=== PATIENT | female | born 1995 | race Caucasian/White ===

== ENCOUNTER 2024-07-28 10:02 | Outpatient (AMB) | payer OTHER, SELFPAY ==
--- NOTE | 2024-07-28 10:08 | A.OFFPC_ITS ---
Vital Signs 07/28/24 10:11 Height 5 ft 3 in Weight 203 lb BMI 36.0 BP 118/90 H Blood Pressure Location Lt brachial Position Sitting Respiration 16 Pulse 82 Pulse Source Pulse Oximeter Temp 98.1 F Pulse Oximetry (%) 99 Oxygen Delivery Method Room Air Intake Visit Reasons: CARPENTERS SUPERVISOR/request PE Intake Note: Pt is here today as a New Patient to [facility] care/ PE Is last menstrual period known: Yes Last menstrual period: 07/27/24 Allergies venlafaxine [From Effexor] Adverse Reaction (Verified 07/28/24 10:29) suicidal Medication List - Last Reconciled 07/28/24 by Jaye Smith MD azelastine (Astepro Allergy) 2 sprays intranasal DAILY bupropion HCl SR 200 mg PO BID buspirone 15 mg PO TID cetirizine 10 mg PO DAILY PRN fluoxetine 40 mg PO DAILY fluoxetine 10 mg PO DAILY glycopyrrolate 1 mg PO ONCE PRN magnesium aspart,citrate,oxide mg PO multivitamin 1 tab PO DAILY norethindrone (contraceptive) 0.35 mg PO DAILY omeprazole magnesium (Prilosec OTC) 20 mg PO DAILY pseudoephedrine HCl 30 mg PO Q4-6H PRN triamcinolone acetonide (Nasacort) 1 spray intranasal DAILY Tobacco use date assessed: 07/28/24 Dental Screening Dental Screen Date: 07/28/24 Did you have a dental visit in the last 12 months?: Yes Did you have a dental problem in the last 6 months where you did not have access to dental care?: Yes Was dental information given to patient?: Patient has dentist HPI CARPENTERS SUPERVISOR/request PE HPI Details 29-year-old lady for a physical exam and to establish with a new PCP. She has history of depression with anxiety, currently being followed by Margaret Liao, a nurse psychiatrist at [facility] who prescribes her fluoxetine, buspirone and bupropion. She is also seeing a therapist Michi Torres once a week by telehealth. She has environmental and seasonal allergies, will be starting immunotherapy at [facility] with Dr. Holliday. Has hyperhidrosis currently taking glycopyrrolate as needed with good results. She is currently on control pills, needs a referral to a new OBGYN provider. [facility] Medical History Obesity (BMI 35.0-39.9 without comorbidity) Environmental and seasonal allergies Depression with anxiety De Quervain's tenosynovitis, left Uses control Surgical History (Updated 07/28/24 @ 10:40 by Jaye Smith MD) Hx of LASIK H/O wisdom tooth extraction History of tonsillectomy and adenoidectomy H/O left wrist surgery Family History (Updated 07/28/24 @ 10:55 by Jaye Smith MD) Father Substance use disorder Mental health disorder Lung cancer Alcoholism Maternal Grandmother Lung cancer Paternal Grandmother Breast cancer Paternal Aunt Breast cancer, Onset Age: 40 Social History (Updated 07/28/24 @ 10:56 by Jaye Smith MD) Housing: House Patient Tobacco Use Status: Never used Tobacco e-Cigarette/Vaping Use: Currently Using Substance Use Type: Marijuana service: No Current occupational status: employed Current occupation: [employer] Cognitive needs: No Hearing needs: No Vision needs: No Female Reproductive History Menstrual Date of last menstrual period: 07/27/24 control method: pills Questionnaire PHQ-9 Over the last 2 weeks, how often have you been bothered by any of the following problems? 1. Little interest or pleasure in doing things: several days 2. Feeling down, depressed, or hopeless: several days 3. Trouble falling or staying asleep, or sleeping too much: several days 4. Feeling tired or having little energy: several days 5. Poor appetite or overeating: not at all 6. Feeling bad about yourself - or that you are a failure or have let yourself or your family down: not at all 7. Trouble concentrating on things, such as reading the newspaper or watching television: several days 8. Moving or speaking so slowly that other people could have noticed. Or the opposite - being so fidgety or restless that you have been moving around a lot more than usual: not at all 9. Thoughts that you would be better off or of hurting yourself in some way: not at all Total score: 5 Depression Screening Interpretation: Positive (Currently followed by nurse psychiatrist and therapist in [place]) Depression Screening Follow-up: Existing condition, In treatment and Community Mental Health Worker F/U Depression Screening Done: Yes 32333 - PHQ-9 Billing: Yes Source: Developed by Drs. Marcos Hendrix, Dwaine Tomlin and colleagues, with an educational bart from [employer]. Thrive Questionnaire Date Thrive assessed: 07/21/24 I am a: Patient What is your living situation today?: I have a steady place to live Within the past 12 months, did the food you bought not last and you didn't have the money to get more?: Never true Within the past 12 months, did you worry whether your food would run out before you got money to buy more?: Never true Do you have trouble paying for medicines?: No Do you have trouble getting transportation to medical appointments?: No Do you have trouble paying your heating and electricity bill?: No Do you have trouble taking care of your child, family member or friend?: No Do you have trouble with day-to-day activities such as bathing, preparing meals, shopping, managing finances, etc.?: No Are you currently unemployed and looking for a job?: No Are you interested in more education?: I choose not to answer this question Please select the resources that you would like help with: None Currently or been in a relationship where the following occur: I choose not to answer THRIVE Score: 0 AUDIT C Alcohol Use Questionnaire (AUDIT-C) 1. How often do you have a drink containing alcohol?: Never 3. How often do you have six or more drinks on one occasion?: Never Total Score: 0 VASYL-7 AMB Questionnaire VASYL-7 Feeling nervous, anxious, or on edge: 1 = Several days Not being able to stop or control worryin = Several days Worrying too much about different things: 1 = Several days Trouble relaxin = Several days Being so restless that it is hard to sit still: 0 = Not at all Becoming easily annoyed or irritable: 1 = Several days Feeling afraid as if something awful might happen: 0 = Not at all Total VASYL-7 score (0-4 normal; 5-9 mild; 10-14 moderate; 15-21 severe): 5 Source: Developed by Drs. Marcos Hendrix, Dwaine Tomlin and colleagues, with an educational bart from [employer]. VASYL-7 Assessment Billing VASYL-7 Assessment Tool: VASYL-7 Assessment 87350 Review of Systems Const Denies body aches, Denies fatigue, Denies fever(s), Denies headache(s) and Denies weakness Eyes Denies change in vision, Denies eye discharge and Denies itchy eyes ENT Denies dysphagia, Denies dizziness, Denies headache(s), Denies lip swelling, Reports nasal congestion, Reports post nasal drip, Denies sinus pain, Denies sore throat and Denies throat swelling Card Denies chest pain, Denies lightheadedness, Denies palpitations and Denies dyspnea Resp Denies chest congestion, Denies cough, Denies dyspnea and Denies wheezing GI Denies abdominal pain, Denies change in bowel habits, Denies dysphagia and Denies heartburn Denies hematuria, Denies urinary frequency, Denies dysuria and Denies urinary urgency Musc Reports no additional complaints Skin/Breast Denies breast pain, Denies breast mass, Denies lesions and Denies rash Neuro Denies dizziness, Denies headache(s) and Denies weakness Psych Reports as per HPI Endo Denies fatigue, Denies polydipsia, Denies polyuria and Denies palpitations Grey/Lymph Denies easy bruising Aller/Immun Reports as per HPI, Denies itchy eyes, Denies lip swelling, Denies throat swelling and Denies wheezing Physical exam (Primary Care) Vital Signs: Last Vital Signs Temp 98.1 F 07/28/24 10:11 Pulse 82 07/28/24 10:11 Resp 16 07/28/24 10:11 BP 118/90 H 07/28/24 10:11 Pulse Ox 99 07/28/24 10:11 Oxygen Delivery Method Room Air 07/28/24 10:11 BMI result Body Mass Index 36.0 Tobacco/Smoking Status: Tobacco use Status Tobacco use date assessed 07/28/24 07/28/24 10:26 Patient Tobacco Use Status Never used Tobacco 07/28/24 10:56 e-Cigarette/Vaping Use Currently Using 07/28/24 10:56 PHQ-9: PHQ-9 Score PHQ-9: Total score 5 07/31/24 02:52 Depression Screening Interpretation: Positive (Currently followed by nurse psychiatrist and therapist in [place]) Depression Screening Follow-up: Existing condition, In treatment and Community Mental Health Worker F/U Thrive Assessment: Date of Thrive Assessment Date Thrive assessed 07/21/24 07/28/24 10:10 Currently or been in a relationship where the following occur: I choose not to answer Const General: no acute distress and alert Orientation/consciousness: patient oriented x3 [facility] Head: Yes normocephalic Ears: external ears normal, TM's normal bilaterally and EAC's normal General nose exam: Normal external nose present and No nasal discharge present Face and sinus: Yes face symmetric Mouth: Normal oral and palatal mucosa present, lip normal, tongue normal, or opharynx normal and moist mucous membranes Eyes General: appearance normal, both eyes and all related structures Eyelids: Yes eyelids normal Conjunctivae: conjunctivae normal Sclerae: sclerae normal Pupils: Equal, round and reactive pupils present EOM: EOMs intact bilaterally Neck Neck: Yes full ROM, Yes no lymphadenopathy and Yes supple Thyroid: Thyroid normal Resp Effort & Inspection: normal respiratory effort and able to speak in complete sentences Auscultation: clear to auscultation bilaterally Cardio Rate: regular rate Rhythm: regular rhythm Heart sounds: S1 normal heart sound present and S2 normal heart sound present GI Palpation (GI): Soft to palpation, nontender, no guarding and no masses Auscultation: normal bowel sounds General: Yes no CVA tenderness Back/Spine/Pelvis Back: no CVA tenderness and No back tenderness Skin General skin exam: no rashes or lesions noted Neuro General: patient oriented x3, gait normal, moves all extremities, Normal light touch and pain sensation, no focal motor deficits and CN's II-XI intact bilaterally Cranial nerves: Yes Equal, round and reactive pupils present Cognition (Neuro): normal cognition Gait exam (Neuro): Normal gait present Motor exam (neuro): 5/5 motor strength present throughout Extrem General: Yes normal to inspection, Yes full ROM, Yes no joint enlargement, Yes no pedal edema and Yes normal gait Psych Appearance: grossly normal and well kempt Mental Status: mental status grossly normal Speech and movement: Normal speech and movement present Affect: normal affect Attitude: cooperative Thought process: Normal thought process present Thought content: Normal thought content present Coding Level of Care Code New Pt Prev Care 18-39yr(17250 Diagnoses Annual visit for general adult medical examination with abnormal findings Z00.01 Depression with anxiety F41.8 Screening for malignant neoplasm of cervix Z12.4 Uses control Z78.9 Environmental and seasonal allergies J30.89 Encounter for counseling regarding advance directives Z71. Obesity (BMI 35.0-39.9 without comorbidity) E66.9 Additional Codes PHQ-9 - 13166 - PHQ-9 Billing: Yes ([id number]) VASYL-7 Assessment Billing - VASYL-7 Assessment Tool: VASYL-7 Assessment 81696 ([id number]) Assessment & Plan Assessment & Plan (1) Annual visit for general adult medical examination with abnormal findings: Code(s): Z00.01 - Encounter for general adult medical examination with abnormal findings Plan: Will check appropriate labs. Continue regular dental visit every 6 months and regular eye exams, at least every 2 years. Take adequate calcium in diet and vitamin-D 3 at 2000 IU per cap once a day, in addition to weight-bearing exercises to help maintain good muscle tone and weight control. Instructed to do self-breast exam, and recommended to get yearly mammogram, starting at age 40. Referred [place] [facility] for routine Pap and pelvic exam and maintenance of control has had COVID vaccines in the past did not get the booster so anymore, reminded to get her yearly flu shot, up-to-date with her Tdap and childhood vaccination (2) Depression with anxiety: Code(s): F41.8 - Other specified anxiety disorders Category: Medical Plan: Currently being followed by Margaret Liao a nurse psychiatrist at [facility] who prescribes her fluoxetine buspirone and bupropion. She is also seeing a therapist Michi Torres once a week by [facility] (3) Screening for malignant neoplasm of cervix: Code(s): Z12.4 - Encounter for screening for malignant neoplasm of cervix Plan: Referred to [facility] for routine Pap and pelvic exam (4) Uses control: Code(s): Z78.9 - Other specified health status Category: Social Hx Plan: Currently on norethindrone 0.35 mg daily, referred to [facility] for control maintenance (5) Environmental and seasonal allergies: Comment: sees [facility] Dr Siddiqui Code(s): J30.89 - Other allergic rhinitis Category: Medical Plan: Will be starting immunotherapy at [facility] with Dr. Holliday (6) Encounter for counseling regarding advance directives: Code(s): Z71.89 - Other specified counseling Plan: Initiated the conversation about Advanced Directives. Advanced Directives help patients prepare for current and future decisions about their medical treatment and place of care. Discussed with patient that it is a process where a patients current condition and prognosis are reviewed, their wishes for information regarding their illness are elicited, and likely medical dilemmas are presented and options discussed. Healthcare proxy form completed today. The form can be amended as needed, reviewed yearly and make changes as needed (7) Obesity (BMI 35.0-39.9 without comorbidity): Code(s): E66.9 - Obesity, unspecified Category: Medical Plan: Recommended focusing on improving health instead of dieting. Mediterranean diet is a healthy diet that helps, limit food high in fat, sugar, and calories. Eat slowly, pay attention to portion sizes, plan your meals ahead of time, start regular physical activity, at least 150 minutes of moderate intensity exercise, or 90 minutes per week of vigorous exercise. Keeping a food diary, tracking what you eat and your physical activity can help assess what improvements you can make. There are many health problems associated with being overweight/obese, so it is important to improve your diet and exercise. There are medications and surgical options available, but Lifestyle changes are the 1st step. Orders: Orders Vitamin D 25-OH Total 07/28/24 F4.8 - Other specified anxiety disorders, J30.89 - Other allergic rhinitis, Z78.9 - Other specified health status TSH reflex Free T4 07/28/24.8 - Other specified anxiety disorders, J30.89 - Other allergic rhinitis, Z78.9 - Other specified health status Lipid Panel 07/28/24.8 - Other specified anxiety disorders, J30.89 - Other allergic rhinitis, Z78.9 - Other specified health status Complete Blood Count Auto Diff 07/28/24.8 - Other specified anxiety disorders, J30.89 - Other allergic rhinitis, Z78.9 - Other specified health status Comprehensive [place]. Panel Fast 07/28/24.8 - Other specified anxiety disorders, J30.89 - Other allergic rhinitis, Z78.9 - Other specified health status Referrals CAPACITY MANAGEMENT SPECIALIST Referral Z12.4 - Encounter for screening for malignant neoplasm of cervix, Z78.9 - Other specified health status
[2024-07-28 10:11] VITALS: BP 118/90; PULSE 82; RESP 16; TEMP 36.7; O2SAT 99; BMI 36.0
--- OUTSIDE RECORDS SUMMARY | 2024-07-28 11:39 | XMS_ITS | Encounter Summary ---
Author Organization [facility] Address [address] [place] [address] Phone Care Team Providers Care Project Structural Engineer Name Role Phone Giovana Griffith DO Primary Care Provider [phone] Encounter Details Date Type Department Care Team (Late st Contact Info) Description 02/19/2017 Conversion Encounter [facility] [address] [place] [address] Social History Tobacco Use Types Packs/Day Years Used Date Smoking Tobacco: Never Comments:Never smoker Comments Unknown Sex and Gender Information Value Date Recorded Sex Assigned at Not on file Legal Sex Female 5:22 PM EDT Gender Identity Not on file Sexual Orientation Not on file documented as of this encounter Plan of Treatment Not on file documented as of this encounter Visit Diagnoses Not on filedocumented in this encounter Care Teams Project Structural Engineer Relationship Specialty Start Date End Date Giovana Griffith DO [address] [place] [address] PCP - General 11/28/16 07/20/22 documented as of this encounter
--- OUTSIDE RECORDS SUMMARY | 2024-07-28 11:39 | XMS_ITS | Clinical Summary ---
Author Organization [facility] Address [address] [place] [address] Phone Care Team Providers Care Card Grinder Name Role Phone Unavailable Primary Care Provider Unavailabl e Immunizations Immunization Administration Dates Next Due DTP 09/19/1997, 7,1996,05/13 DTaP 5 03/23/2001 H1N1 02/16/2009 HPV, Quadrivalent 12/17/2009,02/16/2009,12/15/19 09 Hep A, ped/adol 10/31/2014,02/13/2014 Hep B, ped/adol 1996,1996,1996 Hib (PRP-T) 06/12/1997, 7,1996,05/13 IPV 03/23/2001 Influenza Split 01/21/2013, 2,01/09/2011,12/17 Influenza, injectable, quadr ivalent, preservative free 01/08/2016,02/13/2014 MMR 2000,1997 Meningococcal Conj (Menactra) MCV4P 10/31/2014,0 12/14/2008 OPV 1996,1996,1996 Td (adult) (Tenivac), 5 Lf t etanus toxoid, PF, adsorbed 11/07/2014 Tdap 11/14/2008 Varicella 12/14/2008,09/19/1997 Family History Relation Name Status Comments Father Alive Father: Alive a nd well Maternal Grandmother Alive Materna l grandmother: Cancer -lung/ brain Mother Alive Mother: Hyperte nsion Other No family histo ry of *Thrombophilia, Family history of Obesity, Family history of Cancer, breast Paternal Grandmother Paterna l grandmother: colon and breast cancer Social History Tobacco Use Types Packs/Day Years Used Date Smoking Tobacco: Never Comments:Never smoker Comments Unknown Sex and Gender Information Value Date Recorded Sex Assigned at Not on file Legal Sex Female 5:22 PM EDT Gender Identity Not on file Sexual Orientation Not on file Last Filed Vital Signs Vital Sign Reading Time Taken Comments Blood Pressure 119/79 06/19/2016 12:00 AM EST Pulse 73 06/19/2016 12:00 AM EST Temperature 36.6 ??C (97.9 ??F) 06/19/2016 12:[address] Respiratory Rate - - Oxygen Saturation - - Inhaled Oxygen Concentration - - Weight 92.6 kg (204 lb 3.2 oz) 06/19/2016 12:00 AM EST Height 160.7 cm (5' 3.25 ) 06/16/2016 12:[address] Body Mass Index 35.88 06/16/2016 12:00 AM EST Plan of Treatment Health Maintenance Due Date Last Done Comments Influenza Vaccines (#1) 2023 01/08/20 16, 02/13/2014, 01/21/2013, Additional history exists COVID-19 Vaccine ( season) 2023 DTaP,Tdap,and Td Vaccines (8 - Td or Tdap) 11/07/2024 11/07/2014, 11/14/2008, 03/23/2001, Additional history exists Hepatitis B Vaccines Completed 1996, 1996, 1996 HIB Vaccines Completed 06/12/1997, 08/19, 1996, Additional history exists MMR Vaccines Completed 2000, 1997 IPV Vaccines Completed 03/23/2001, 08/19, 1996, Additional history exists Varicella Vaccines Completed 12/14/2008, 09/19/1997 HPV Vaccines Completed 12/17/2009, 01/20, 12/14/2008 Hepatitis A Vaccines Completed 10/31/2014, 02/14/20 14 Meningococcal Vaccine Completed 10/31/2014, 009 Men B Vaccine Aged Out No longer elig ible based on patient's age to complete this topic Pneumococcal Vaccine Aged Out No long er eligible based on patient's age to complete this topic Procedures * Due to [place] state law, this organization might not be sharing sensitive test results. Procedure Name Priority Date/Time Associated Diagnosis Comments CHLAMYDIA AND GONORRHEA, AMPLIFIED Routine 06/23/2016 2:03 PM EST from Last 3 Months or Most Recently Relevant to Health Maintenance Results * Due to [place] [employer] law, this organization might not be sharing sensitive test results. * Chlamydia and Gonorrhoea, Amplified (06/23/2016 2:03 PM EST) URINE CHLAMYDIA AMP PROBE NEGATIVE [facility] Comment: No Chlamydia Trachomatis RNA detected in this patient's sample (REFERENCE RANGE/NORMAL VALUE: NOT DETECTED) URINE GC AMP PROBE NEGATIVE [facility] Comment: No Neisseria Gonorrhoeae RNA detected in this patient's sample (REFERENCE RANGE/NORMAL VALUE: NOT DETECTED) NOTE: This test uses mainspring winder and oiler-mediated amplification method to detect rRNA from C.Trachomatis and N.Gonorrhoeae. A negative result does not preclude infection. In the case of a negative urine result, testing of an endocervical(female) or urethral(male) specimen is recommended if there is high clinical suspicion of infection. The performance characteristics of this test have not been evaluated in children. The Aptima Combo2 assay is not intended for the evaluation of suspected sexual abuse or for other medico-legal indications. The ordering provider should assess if the patient had consensual sex without risk of sexual abuse. Consult the [facility] if needed. Contact phone number . Therapeutic failure or success cannot be determined with the Aptima Combo2 assay since nucleic acid may persist following appropriate antimicrobial therapy. The Centers for Disease Control and Prevention (CDC) recommends confirmatory retesting using culture or a different nucleic acid amplification test when positive results occur, if indicated. Testing performed or reported by [facility], a Service of [facility], [facility] [address], [place] [address] CLIA ??[id number] Brian Wright MD, PhD, Exhauster 06/23/2016 2:03 PM EST Narrative [facility] - 06/23/2016 2:03 PM EST URINE CHLAMYDIA GC AMP PROBE Leanna Landry MD LAB MICROBIOLOGY - GENERAL ORDER ALEJANDRA Final Result [facility] [address] [place] [address], [place] from Last 3 Months or Most Recently Relevant to Health Maintenance
--- OUTSIDE RECORDS SUMMARY | 2024-07-28 11:40 | XMS_ITS | Encounter Summary ---
Author Organization [facility] Address [address] [place] [address] Phone Care Team Providers Care Pantograph Watcher Name Role Phone Giovana Griffith DO Primary Care Provider [phone] Encounter Details Date Type Department Care Team (Late st Contact Info) Description 02/25/2016 Documentation EM Family [facility] [address] [place] [address] Family Medicine, Physician [address] [id number] Social History Tobacco Use Types Packs/Day Years Used Date Smoking Tobacco: Never Assessed Comments Unknown Sex and Gender Information Value Date Recorded Sex Assigned at Not on file Legal Sex Female 5:22 PM EDT Gender Identity Not on file Sexual Orientation Not on file documented as of this encounter Plan of Treatment Not on file documented as of this encounter Visit Diagnoses Not on filedocumented in this encounter Care Teams Pantograph Watcher Relationship Specialty Start Date End Date Giovana Griffith DO [address] [place] [address] PCP - General 11/28/16 07/20/22 documented as of this encounter
--- OUTSIDE RECORDS SUMMARY | 2024-07-28 11:40 | XMS_ITS | Encounter Summary ---
Author Organization [facility] Address [address] [place] [address] Phone Care Team Providers Care County Health Officer Name Role Phone Giovana Griffith DO Primary Care Provider [phone] Encounter Details Date Type Department Care Team (Late st Contact Info) Description 11/04/2012 Documentation EM Family Medicine [address] [place] [address] Family Medicine, Physician [address] [place], [place] [id number] Social History Tobacco Use Types Packs/Day Years [...] on filedocumented in this encounter Care Teams County Health Officer Relationship Specialty Start Date End Date Giovana Griffith DO [address] [place] [address] PCP - General 11/28/16 07/20/22 documented as of this encounter
--- OUTSIDE RECORDS SUMMARY | 2024-07-28 11:40 | XMS_ITS | Encounter Summary ---
Author Organization [facility] Address [address] [place] [address] Phone Care Team Providers Care Spear Fisher Name Role Phone Giovana Griffith DO Primary Care Provider [phone] Encounter Details Date Type Department Care Team (Late st Contact Info) Description 04/16/2011 Documentation EM Family Medicine [address] [place] [address] Family Medicine, Physician [address] [place], [place] [phone] Social History Tobacco Use Types Packs/Day Years [...] on filedocumented in this encounter Care Teams Spear Fisher Relationship Specialty Start Date End Date Giovana Griffith DO [address] [place] [address] PCP - General 11/28/16 07/20/22 documented as of this encounter
--- OUTSIDE RECORDS SUMMARY | 2024-07-28 11:40 | XMS_ITS | Encounter Summary ---
Author Organization [facility] Address [address] [place] [address] Phone Care Team Providers Care Division Operations Manager Name Role Phone Giovana Griffith DO Primary Care Provider Encounter Details Date Type Department Care Team (Late st Contact Info) Description 03/25/2011 Documentation EM Family Medicine [address] [place] [address] Family Medicine, Physician [address] [place], [place] [phone] Social History Tobacco Use Types Packs/Day Years [...] on filedocumented in this encounter Care Teams Division Operations Manager Relationship Specialty Start Date End Date Giovana Griffith DO [address] [place] [address] PCP - General 11/28/16 07/20/22 documented as of this encounter
--- OUTSIDE RECORDS SUMMARY | 2024-07-28 11:40 | XMS_ITS | Encounter Summary ---
Author Organization [facility] Address [address] [place] [address] Phone Care Team Providers Care Fleecer Name Role Phone Giovana Griffith DO Primary Care Provider [phone] Encounter Details Date Type Department Care Team (Late st Contact Info) Description 02/25/2016 Documentation EM Family Medicine [address] [place] [address] Family Medicine, Physician [address] [place] [phone] Social History Tobacco Use Types Packs/Day Years [...] on filedocumented in this encounter Care Teams Fleecer Relationship Specialty Start Date End Date Giovana Griffith DO [address] [place] [address] PCP - General 11/28/16 07/20/22 documented as of this encounter
== END 2024-07-28 11:10 | disposition home or self-care (01) ==
LOC: HO.HMCC 10:03
PROVIDERS: PCP Pediatrics; Visit Provider Internal Medicine
DX: Z00.00 Encounter for general adult medical examination without abnormal findings (principal); F41.8 Other specified anxiety disorders; E66.9 Obesity, unspecified; Z68.36 Body mass index [BMI] 36.0-36.9, adult; Z78.9 Other specified health status; J30.89 Other allergic rhinitis; Z71.89 Other specified counseling

== ENCOUNTER → 2024-07-28 10:02 | Outpatient (BNVA) | payer OTHER, SELFPAY | PROVIDERS: PCP Pediatrics; Visit Provider Internal Medicine | DX: Z00.01 Encounter for general adult medical examination with abnormal findings (principal); F32.A Depression, unspecified; F41.8 Other specified anxiety disorders; J30.89 Other allergic rhinitis; E66.9 Obesity, unspecified; Z71.89 Other specified counseling; Z91.09 Other allergy status, other than to drugs and biological substances; Z78.9 Other specified health status; Z68.36 Body mass index [BMI] 36.0-36.9, adult | CPT/HCPCS: 96127; 99385 ==

== ENCOUNTER 2024-08-06 10:25 | Outpatient (REF) | payer OTHER, SELFPAY ==
[2024-08-06 13:45] LABS: MANUAL DIFF FLAG NO
[2024-08-06 13:50] LABS: Basophils Absolute Auto 0.1 X10*3/uL (0.0-0.2); Basophils Percent Auto 1.2 % (0-2); Eosinophils Absolute Auto 0.1 X10*3/uL (0.0-0.4); Eosinophils Percent Auto 2.4 % (0-4); Hematocrit 41.4 % (37.0-47.0); Imm Gran Abs Auto 0.01 X10*3/uL (0.00-0.03); Imm Gran Pct Auto 0.2 % (0.0-0.4); Lymphocytes Absolute Auto 2.3 X10*3/uL (1.2-4.9); Lymphocytes Percent Auto 39.3 % (20-40); Mean Corpuscular HGB Conc 33.8 g/dl (31.0-35.0); Mean Corpuscular Hemoglobin 30.7 pg (27.0-33.0); Mean Corpuscular Volume 90.8 fL (80.0-98.0); Mean Platelet Volume 9.9 fL (9.4-12.3); Monocytes Absolute Auto 0.5 X10*3/uL (0.1-1.2); Monocytes Percent Auto 7.9 % (2-11); Neutrophils Absolute Auto 2.9 x10*3/uL (2.0-8.3); Platelet Count 287 X10*3/uL (160-400); Red Blood Count 4.56 X10*6/uL (4.20-5.50); Red Cell Distribution Width 11.9 % (11.0-16.0); White Blood Count 5.8 X10*3/uL (4.8-10.8)
[2024-08-06 14:27] LABS: Alanine Aminotransferase 25 U/L (0-31); Albumin Level 3.8 g/dL (3.5-5.0); Anion Gap 10 (12-20); Aspartate Amino Transferase 22 U/L (5-31); Bilirubin Total 0.3 mg/dL (0.0-1.0); Blood Urea Nitrogen 14 mg/dL (9-16); Calcium 9.3 mg/dL (8.4-10.2); Carbon Dioxide 26 mmol/L (22-29); Chloride 109 mmol/L (96-108); Cholesterol 156 mg/dL (<200); Estimated Glomerular Filt Rate > 60; Glucose Fasting 87 mg/dL (60-99); HDL Cholesterol 38 mg/dL (>40); LDL Cholesterol Calculated 108 mg/dL (<100); Sodium 141 mmol/L (135-145); Total Protein 6.3 g/dL (6.5-8.0); Triglycerides 50 mg/dL (<150); Vitamin D 25-OH Total 83.5 ng/mL (>30)
[2024-08-06 14:48] LABS: Alkaline Phosphatase 64 U/L (39-117)
== END 2024-08-06 10:26 | disposition home or self-care (01) ==
LOC: HO.HMGCLDS 10:25
PROVIDERS: PCP Internal Medicine; Visit Provider Internal Medicine
DX: J30.89 Other allergic rhinitis (principal); F41.8 Other specified anxiety disorders; Z78.9 Other specified health status
CPT/HCPCS: 36415; 80053; 80061; 82306; 84443; 85025

== ENCOUNTER 2024-09-20 13:05 | Outpatient (AMB) | payer OTHER, SELFPAY ==
--- NOTE | 2024-09-20 13:06 | AM.OFFWIN_ITS ---
Intake Vital Signs 09/20/24 13:11 Weight 210 lb BP 122/84 Blood Pressure Location Lt brachial Position Sitting Pulse 102 H Pulse Source Pulse Oximeter Temp 98.0 F Temp Source Oral Pulse Oximetry (%) 98 Oxygen Delivery Method Room Air Intake Visit Reasons: EP chest congestion Intake Note: Patient here for cough and chest congestion that has been present for a couple of days. Patient Tobacco Use Status: Never used Tobacco Allergies venlafaxine [From Effexor] Adverse Reaction (Verified 09/20/24 13:09) suicidal Do you need a note to return to daycare/school/sports/work: No HPI HPI Comments History of Present Illness Details History of Present Illness - The patient is a 29-year-old female pr esenting with persistent postnasal drip after returning from a trip to [place] a few days ago. - She has been experiencing difficulty i n expectorating during a wet cough, with notable postnasal drip associated with allergies. - Initially, guaifenesin helped in mucou s production, but its effect has diminished. - Chronic ear fullness suggests potentia l allergic rhinitis; recent medications include Zyrtec and episodic Sudafed use, though she has not used Sudafed recently. - She is planning for additional allergy testing owing to a history of unresolved allergy-associated ear and nasal symptoms. - No respiratory disorders like asthma o r COPD, nor any tobacco use, though smoking cannabis is utilized via medical licensing. - Despite efforts in increasing hydratio n levels, she reports feeling fatigued and slightly dehydrated. - Consistent symptom management with pre vious medications like Flonase without significant improvement noted. Physical Exam General: Cooperative, healthy appearing, comfortable, no acute distress and well developed Orientation: Patient oriented x3 Limitations: No limitations Head: Normal to inspection Ears: Fluid right TM, no infection, left TM normal, hearing grossly normal, bilateral EAC's normal Nose: Normal External nose present Face and sinus: Normal facial exam Eyes: Appearance normal, both eyes and all related structures Neck: Normal visual inspection and Yes full ROM Respiratory: Normal respiratory effort and able to speak in complete sentences. Clear to auscultation bilaterally Cardiovascular: tachycardic rate and regular rhythm. Skin: No rashes or lesions noted Neuro: Patient oriented x3 Extremities: Normal to inspection [facility] Medical History Obesity (BMI 35.0-39.9 without comorbidity) Environmental and seasonal allergies Depression with anxiety De Quervain's tenosynovitis, left Uses control Surgical History (Updated 07/28/24 @ 10:40 by Jaye Smith MD) Hx of LASIK H/O wisdom tooth extraction History of tonsillectomy and adenoidectomy H/O left wrist surgery Family History (Updated 07/28/24 @ 10:55 by Jaye Smith MD) Father Substance use disorder Mental health disorder Lung cancer Alcoholism Maternal Grandmother Lung cancer Paternal Grandmother Breast cancer Paternal Aunt Breast cancer, Onset Age: 40 Social History (Updated 07/28/24 @ 10:56 by Jaye Smith MD) Housing: House Patient Tobacco Use Status: Never used Tobacco e-Cigarette/Vaping Use: Currently Using Substance Use Type: Marijuana service: No Current occupational status: employed Current occupation: [employer] Cognitive needs: No Hearing needs: No Vision needs: No Review of Systems Const All systems reviewed & are unremarkable except as noted in HPI and below Physical Exam Vital Signs: Last Vital Signs Temp 98.0 F 09/20/24 13:11 Pulse 80 09/20/24 13:11 BP 122/84 09/20/24 13:11 Pulse Ox 98 09/20/24 13:11 Oxygen Delivery Method Room Air 09/20/24 13:11 Assessment & Plan Assessment & Plan (1) Environmental and seasonal allergies: Comment: sees [facility] of [facility] Dr Siddiqui Code(s): J30.89 - Other allergic rhinitis Plan: The patient should switch to pseudoephedrine for more effective relief from nasal congestion, with attention to usage duration to avoid rebound congestion. Proper nasal spray techniques were demonstrated to improve efficacy. Increased fluid intake is advised to mitigate dehydration, correlating with symptomatic alleviation. Allergy medication adjustment is suggested by switching Zyrtec to Xyzal eventually to counter possible tolerance build-up; considering an add-on Benadryl at night for enhanced drying effects. Allergy testing will provide clarity on ongoing symptoms, especially after persistent ear symptoms despite medication. Recommending persistent monitoring and mentioned follow-up if symptom management does not yield marked improvement. Patient was informed and verbally consented to the use of an ambient scribe for clinic note documentation during this visit. Coding Level of Care Code Est Pt Level 3 (68394) Diagnoses Environmental and seasonal allergies J30.89
[2024-09-20 13:11] VITALS: BP 122/84; PULSE 102; TEMP 36.7; O2SAT 98
--- OUTSIDE RECORDS SUMMARY | 2024-09-20 14:33 | XMS_ITS | Clinical Summary ---
Author Organization [facility] Address [address] [place] [address] Phone Care Team Providers Care Septic Tank Installer Name Role Phone Unavailable Primary Care Provider [...] complete this topic Procedures * Due to [place] state law, this organization might not be sharing sensitive test results. Procedure Name Priority Date/Time Associated Diagnosis Comments CHLAMYDIA AND GONORRHEA, AMPLIFIED Routine 06/23/2016 2:03 PM EST from Last 3 Months or Most Recently Relevant to Health Maintenance Results * Due to [place] [employer] law, this organization might not be sharing sensitive test results. * Chlamydia and Gonorrhoea, Amplified (06/23/2016 2:03 PM EST) URINE CHLAMYDIA AMP PROBE NEGATIVE [facility] Comment: No Chlamydia Trachomatis RNA detected in this patient's sample (REFERENCE RANGE/NORMAL VALUE: NOT DETECTED) URINE GC AMP PROBE NEGATIVE [facility] Comment: No Neisseria Gonorrhoeae RNA detected in this patient's sample (REFERENCE RANGE/NORMAL VALUE: NOT DETECTED) NOTE: This test uses student truck driver-mediated amplification method to detect rRNA from C.Trachomatis [...] without risk of sexual abuse. Consult the [facility] if needed. Contact phone number . Therapeutic failure or success cannot be determined with the Aptima Combo2 assay since nucleic acid may persist following appropriate antimicrobial therapy. The Centers for Disease Control and Prevention (CDC) recommends confirmatory retesting using culture or a different nucleic acid amplification test when positive results occur, if indicated. Testing performed or reported by [facility], a Service of [facility], [facility] [address], [place] [address] CLIA ??[id number] Brian Wright MD, PhD, Elementary School Band Director 06/23/2016 2:03 PM EST Narrative [facility] - 06/23/2016 2:03 PM EST URINE CHLAMYDIA GC AMP PROBE Leanna Landry MD LAB MICROBIOLOGY - GENERAL ORDER ALEJANDRA Final Result [facility] [address] [place] [address], [place] from Last 3 Months or Most Recently Relevant to Health Maintenance
== END 2024-09-20 13:40 | disposition home or self-care (01) ==
PROVIDERS: PCP Internal Medicine; Visit Provider Physician Assistant
DX: J30.89 Other allergic rhinitis (principal)

== ENCOUNTER → 2024-09-20 13:05 | Outpatient (BNVA) | payer OTHER, SELFPAY | PROVIDERS: PCP Internal Medicine; Visit Provider Physician Assistant | DX: J30.89 Other allergic rhinitis (principal) | CPT/HCPCS: 99212 ==

== ENCOUNTER 2024-11-14 12:40 | Outpatient (AMB) | payer OTHER, SELFPAY ==
--- OUTSIDE RECORDS SUMMARY | 2024-11-14 13:26 | XMS_ITS | Clinical Summary ---
Author Organization [facility] Address [address] [place] [address] Phone Care Team Providers Care Assistant Name Role Phone Unavailable Primary Care Provider [...] 73 06/19/2016 12:00 AM EST Temperature 36.6 C (97.9 F) 06/19/2016 12:00 AM EST Respiratory Rate - - Oxygen Saturation - - Inhaled Oxygen Concentration - - Weight 92.6 kg (204 lb 3.2 oz) 06/19/2016 12:00 AM EST Height 160.7 cm (5' 3.25 ) 06/16/2016 12:[address] Body Mass Index 35.88 06/16/2016 12:00 AM EST Plan of Treatment Health Maintenance Due Date Last Done Comments COVID-19 Vaccine ( season) 2023 DTaP,Tdap,and Td Vaccines (8 - Td or Tdap) 11/07/2024 11/07/2014, 11/14/2008, 03/23/2001, Additional history exists Influenza Vaccines (#1) 2024 01/08/20 16, 02/13/2014, 01/21/2013, Additional history exists Hepatitis B Vaccines Completed [...] complete this topic Procedures * Due to [place] state law, this organization might not be sharing sensitive test results. Procedure Name Priority Date/Time Associated Diagnosis Comments CHLAMYDIA AND GONORRHEA, AMPLIFIED Routine 06/23/2016 2:03 PM EST from Last 3 Months or Most Recently Relevant to Health Maintenance Results * Due to [facility] law, this organization might not be sharing sensitive test results. * Chlamydia and Gonorrhoea, Amplified (06/23/2016 2:03 PM EST) URINE CHLAMYDIA AMP PROBE NEGATIVE [facility] Comment: No Chlamydia Trachomatis RNA detected in this patient's sample (REFERENCE RANGE/NORMAL VALUE: NOT DETECTED) URINE GC AMP PROBE NEGATIVE [facility] Comment: No Neisseria Gonorrhoeae RNA detected in this patient's sample (REFERENCE RANGE/NORMAL VALUE: NOT DETECTED) NOTE: This test uses internet media planner-mediated amplification method to detect rRNA from C.Trachomatis [...] without risk of sexual abuse. Consult the [facility] if needed. Contact phone number . Therapeutic failure or success cannot be determined with the Aptima Combo2 assay since nucleic acid may persist following appropriate antimicrobial therapy. The Centers for Disease Control and Prevention (CDC) recommends confirmatory retesting using culture or a different nucleic acid amplification test when positive results occur, if indicated. Testing performed or reported by [facility], a Service of [facility], [facility] [place] [address] CLIA [id number] Brian Wright MD, PhD, Veterinary Pathologist 06/23/2016 2:03 PM EST Narrative [facility] - 06/23/2016 2:03 PM EST URINE CHLAMYDIA GC AMP PROBE us Leanna Landry MD LAB MICROBIOLOGY - GENERAL ORDER ALEJANDRA Final Result [facility] [address] [address], [place] from Last 3 Months or Most Recently Relevant to Health Maintenance
--- OUTSIDE RECORDS SUMMARY | 2024-11-14 13:27 | XMS_ITS | Clinical Summary ---
Author Organization [facility] Address [address] [place] [phone] Phone Care Team Providers Care Folder Inspector Name Role Phone Ayana Paez MD Primary Care Provider Allergies Active Allergy Reactions Criticality Noted Date Comments Other 10/26/2018 seasonal Venlafaxine 12/24/2016 Medications omeprazole (PriLOSEC) [address] capsule Take 1 capsule (20 mg total) by mouth 1 (one) time each day. 06/17/2022 Active azelastine (ASTELIN) 137 mcg (0.1 %) nasal spray INHALE 2 SPRAYS IN NOSTRILS BID DIRECTED 01/31/2020 Active magnesium 200 mg tablet Take by mouth daily. Active FLUoxetine (PROzac) 20 mg capsule Take 1 Cap by mouth daily. To take with 40 mg capsule total daily dose 60 mg 04/02/2020 Active FLUoxetine (PROzac) 40 mg capsule Take 1 Cap by mouth daily. To take with 20 mg capsule total daily dose 60 mg 04/02/2020 Active buPROPion (WELLBUTRIN) 100 mg tablet Take 2 Tabs by mouth daily. 04/02/2020 Active busPIRone (BUSPAR) 15 mg tablet Take 1 Tab by mouth 3 times daily. 04/02/2020 Active hydrOXYzine HCL (ATARAX) 10 mg tablet Take 1 Tab by mouth daily as needed for Anxiety. 04/02/2020 Active norethindrone (KARY,CARLOS,Brenton SOW,MICRONOR ) 0.35 mg tablet Take 1 tablet (0.35 mg total) by mouth 1 (one) time each day. 84 tablet 3 08/19/2024 08/20/19 26 Active Active Problems Problem Noted Date Diagnosed Date Marijuana abuse 04/08/2024 Gastroesophageal reflux disease without esophagi tis 04/02/2020 Seasonal allergic rhinitis 02/08/2019 Migraine headache 12/24/2016 Anxiety and depression 11/20/2016 Overview (04/08/2024): 02/19/16 Merc -Crisis ER visit . SI/Depression. Med provider was Viry Roe, Pediatric Encounters Date Type Department Care Team Description 10/27/2024 Telephone Obstetrics & Gynecology [facility] [address] [place] [address] Rosaura Martinez CNM Med Refill 08/17/2024 Telephone Obstetrics & Gynecology [address] [phone] Rosaura Martinez CNM Medication from Last 3 Months Immunizations Name Administration Dates Next Due DTP 09/19/1997, 7,1996,05/13 DTaP (Infanrix) 6wks to less than 7yo 03/23/2001 [id number] (Pentacel) 2mo to less than 5yo 06/12/1997,1996,1996,05/13 H1N1 Inj Preservative Free 02/16/2009 HPV, Quadrivalent 12/17/2009,02/16/2009,12/15/19 09 Hepatitis A Pediatric (Havri x; Vaqta) 12mo to less than 19yo 10/31/2014,02/13/2014 Hepatitis B Pediatric (Enger ix B; Recombivax HB) to less than 20 yo 1996,1996,1996 IPV Inactivated polio (Ipol) 6wks and older 03/23/2001 Influenza Quadravalent, MDCK , 0.5ml, with preservative (Flucelvax) 6mo and older 12/24/2016 Influenza trivalent, with pr eservative (Fluzone; Afluria) 6mo and older 01/08/2016,02/13/2014,01/21/2013,01/20,01/09/2011,12/17/2009 MMR, measles mumps and rubel la Live (Priorix; M-M-R II) 12mo and older 2000,1997 Meningococcal MCV4P 10/31/2014,12/14/2008 OPV 1996,1996,1996 Td Tetanus diptheria (Tdvax) 7yo and older 11/07/2014 Tdap Tetanus diptheria acell ular pertussis (Boostrix; Adacel) 7yo and older 06/01/2019,11/14/2008 Varicella live (Varivax) 12m o and older 12/14/2008,09/19/1997 Surgical History Surgery Date Site/Laterality Comments TONSILLECTOMY PROCEDURE: HISTORICAL TONSILLECTOMY OTHER SURGICAL HISTORY PROCEDURE: SC ADENOIDECTOMY PRIMARY <AGE 13 WISDOM TOOTH EXTRACTION PROCEDURE: HISTORICAL WISDOM TEETH EXTRACTION Medical History Medical History Date Comments Anxiety and depression 11/20/2016 DX:Anxiet y and depression; COMMENT: Med provider was Viry Roe Migraine headache 12/24/2016 DX:Migraine he adache Marijuana use DX:Marijuana use Obesity (BMI 35.0-39.9 witho ut comorbidity) 12/24/2016 DX:Obesity (BMI 35.0-39.9 wi thout comorbidity) Family History Medical History Relation Name Comments Uterine cancer Aunt 1 maternal grea t aunt Breast cancer Aunt 2 paternal aunt No Known Problems Brother Alcohol abuse Father CA lung with m ets to brain, CVA Alcohol abuse Maternal Grandfather no con tact Lung cancer Maternal Grandmother with me ts to brain Hypertension Mother HLD No Known Problems Paternal Grandfather Breast cancer Paternal Grandmother bilate ral breast cancer, CA colon, CA brain Cervical cancer Neg Hx Ovarian cancer Neg Hx Relation Name Status Comments Aunt 1 Aunt 2 Alive Brother Alive Father Alive Maternal Grandfather Maternal Grandmother Mother Alive Paternal Grandfather Alive Paternal Grandmother Social History Tobacco Use Types Packs/Day Years Used Date Smoking Tobacco: Never Smokeless Tobacco: Never Alcohol Use Standard Drinks/Week Comments Yes 0 (1 standard drink = 0.6 oz pur e alcohol) Comments Unknown Sex and Gender Information Value Date Recorded Sex Assigned at Not on file Legal Sex Female 5:11 PM EST Gender Identity Not on file Sexual Orientation Not on file Obstetrics History Para Term AB IAB SAB Ectopic Multiple Livin g Live Births 0 0 0 0 0 0 0 0 0 0 0 Last Filed Vital Signs Vital Sign Reading Time Taken Comments Blood Pressure 120/88 10/23/2022 2:37 PM EDT Pulse 109 10/23/2022 2:37 PM EDT Temperature - - Respiratory Rate - - Oxygen Saturation - - Inhaled Oxygen Concentration - - Weight 79.8 kg (176 lb) 10/23/2022 2:37 PM EDT Height 160 cm (5' 3 ) 10/23/2022 2:37 PM EDT Body Mass Index 31.18 10/23/2022 2:37 PM EDT Plan of Treatment Upcoming Encounters Date Type Department Care Team (Late st Contact Info) Description 11/24/2024 3:00 PM EDT Office Visit Obstetrics and Gynecology - [address] [phone] Yudy Currie PA [address] [place] [address] Health Maintenance Due Date Last Done Comments HIV Screening 03/29/2022 Hepatitis C Screening 03/29/2022 Social Influencers of Health Screening 03/29/2022 Cervical Cancer Screening: Pap Smear 05/07/2023 05/07/2020, 05/07/2020, 05/07/2020, Additional history exists COVID-19 Vaccine ( season) 2023 04/06/2020 Depression Screening 04/20/2024 Influenza Vaccine (#1) 2024 7, 01/08/2016, 02/13/2014, Additional history exists Cholesterol Screening (Lipid Panel) 10/07/2027 10/06/2022 DTaP,Tdap,and Td Vaccines (9 - Td or Tdap) 06/01/2029 06/01/2019, 11/07/2014, 11/14/2008, Additional history exists Hepatitis B Vaccines Completed 1996, 1996, 1996 HIB Vaccines Completed 06/12/1997, 08/19, 1996, Additional history exists MMR Vaccines Completed 2000, 1997 IPV Vaccines Completed 03/23/2001, 05/22, 1996, Additional history exists Varicella Vaccines Completed 12/14/2008, 09/19/1997 HPV Vaccines Completed 12/17/2009, 01/20, 12/14/2008 Hepatitis A Vaccines Completed 10/31/2014, 02/14/20 14 Meningococcal ACWY Vaccine Completed 10/31/2014, Meningococcal B Vaccine Aged Out No l onger eligible based on patient's age to complete this topic Pneumococcal Vaccine: Pediatrics (0 to 5 Years) and At-Risk Patients (6 to 49 Years) Aged Out No longer eligible based on patient's age to complete this topic RSV Immunization Patients Under 20 months Aged Out No longer eligible based on patient's age to complete this topic Procedures Procedure Name Priority Date/Time Associated Diagnosis Comments LIPID PANEL Routine 10/06/2022 PAP SMEAR Routine 05/07/2020 from Last 3 Months or Most Recently Relevant to Health Maintenance Results * (ABNORMAL) Lipid panel (10/06/2022) LDL/HDL Ratio 4 0 - 4 Triglycerides 48 0 - 150 mg/dL Cholesterol 167 0 - 200 mg/dL HDL 44 >=40 mg/dL LDL Cholesterol 114(A) 0 - 100 mg/dL Blood Venous blood specimen / Unknown Historical Provider MD LAB BLOOD ORDERABLES Sandy sharp Result * Pap smear (05/07/2020) 05/07/2020 Narrative HISTORICAL TESTING LAB RESULTING AGENCY - 05/09/2020 4:35 PM EST [id number] THINPREP PAP, IMAGED: NEGATIVE FOR SQUAMOUS INTRAEPITHELIAL LESION AND MALIGNANCY . CHRIS HESS(ASCP) (CASE ELECTRONICALLY SIGNED 05 09 2020) ADEQUACY: SATISFACTORY ENDOCERVICAL/TRANSFORMATION ZONE COMPONENT PRESENT. SOURCE: THINPREP PAP HPV IF ASCUS, CERVICAL, IMAGED CLINICAL INFORMATION: HPV IF DIAGNOSIS OF ASCUS. PAP HX NEG. Z12.4, Z01.419 Kaylin Grigsby CNTyshawn LAB CYTOLOGY ORDERABLES Final Result HISTORICAL TESTING LAB RESULTING AGENCY from Last 3 Months or Most Recently Relevant to Health Maintenance Insurance TERES[place] ARREAGA [id number] [facility] [employer] PL[employer] [place] [id number] Care Teams Folder Inspector Relationship Specialty Start Date End Date Ayana Paez MD [address] [facility] TERESO Arreaga [id number] PCP - General 06/17/22
--- OUTSIDE RECORDS SUMMARY | 2024-11-14 13:27 | XMS_ITS ---
Author Name [facility] Organization Unknown Care Team Organization Name Specialty Phone Email Start Date End Da te [facility] Termed, PROVIDER Primary Care 02/25/202211/18
--- OUTSIDE RECORDS SUMMARY | 2024-11-14 13:27 | XMS_ITS | Data Portability ---
Author Organization TERESO Tristin Anglin [facility], [facility] Address [address] [place] [address] Assessment Encounter Date Assessment Date Assessment LastModified by Organization Details LastModified Time 09/18/2023 09/18/2023 28-year-old female returns today in follow-up for recheck of her left wrist de Quervain's tenosynovitis. She notes continued radial sided wrist pain. I reviewed conservative treatment options, recommended cortisone injection of the first dorsal compartment. She was to proceed. She will follow-up in 4 to 6 weeks for recheck, sooner if required. May continue with symptomatic use of her thumb spica splint as well. Not available 09/18/2023 15:13:23 10/30/2023 10/30/2023 28-year-old female returns today in follow-up for recheck of her left wrist de Quervain's tenosynovitis s/p cortisone injection with some improvements in her pain but still continued residual pain radially about the wrist. I recommended a repeat cortisone injection of the first dorsal compartment about the left wrist. She was to proceed. I reviewed potential for surgical intervention if she has recurrent symptoms. Will follow-up in 6 weeks time to recheck, sooner if required Not available 10/30/2023 15:54:30 12/23/2023 12/23/2023 A/ 28-year-old female follow-up left wrist de Quervain's tenosynovitis recalcitrant to extensive conservative treatment P/Symptoms persistent despite extensive conservative treatment (splint, top/oral NSAIDs and steroid injections) She is now indicated for first dorsal compartment release, we have discussed the details of the surgery and the anticipated recovery. Risks of surgery include infection, bleeding, damage to normal tissues, and need for future surgeries. Surgery to be scheduled with my principal secretary. larry Not available 12/23/2023 15:35:25 05/18/2024 05/18/2024 A/ status post left wrist first dorsal compartment release 04/06/2024. P/final work note is provided today. Follow-up for this problem will be on an as-needed basis. Questions asked and answered to her satisfaction. [email or web address] Not available 05/18/2024 08:53:10 Plan of Treatment Reminders Order Date Submit Date Provider Last Modified By Organization Details Last Modified Time Details Appointments None recorded. Lab None recorded. Referral None recorded. Procedures None recorded. Surgeries None recorded. Imaging None recorded. Medication Orders Celestone Soluspan 6 mg/mL suspension for injection 2023 024 [email or web address] Not available 13:47:19 Patient TargetsNo targets recorded. Patient Instructions Encounter Date Encounter Id Patient Instructions Last Modified By Organization Details Last Modified Time 04/18/2024 [id number] work restrictions, upper extremity* - Dr Friedman first dorsal compartment [email or web address] [email or web address] Not available 04/18/2024 10:53:35 Reason for Referral None Reported. Problems Name Problem SNOMED Code Status Onset Date Resolution Date Notes Provider Name and Address Organization Details Recorded Time Tenosynovit is of left radial styloid 3312859575173 9104 Active 2023 Khadar Hernandez PA-C [address], [place], [address], [facility] 4 11:49:23 Problem Notes None recorded. Procedures Surgical History Date Name Laterality Status Provider Name and Address Organization Details Recorded Time 4 DEQUERVAIN'S RELEASE (SURG) completed GILBERTO HALL [facility] 04/07/2024 16:03:28 4 JZWrist Tendon Inj Celestone completed Khadar Hernandez PA-C [address], [place], [address], [facility] 10/30/2023 15:53:49 4 JZWrist Tendon Inj Celestone completed Khadar Hernandez PA-C [address], [place], [address], [facility] 09/18/2023 15:12:36 Imaging Results None recorded. Procedure Notes None recorded. Medical Equipment None Reported. Allergies Allergen ID Allergen Name Allergen Category Reaction Reaction Severity Criticality Documentation Date Start Date Code Code System Note Provider Name and Address Organization Details Recorded Time 623219 venlafaxi ne medicatio n Not available Not available Not available 08/05/2023 82470 RxNorm Lisa malave, [facility] 4 08:44:43 Medications Name Sig Start Date Stop Date Status Note LastModified by Organization Details LastModified Time glycopyrrolat e 1 mg tablet TAKE 1 TABLET BY MOUTH DAILY active Not Available Not Available No t Available fluoxetine 40 mg capsule TAKE 1 CAPSULE BY MOUTH DAILY active Not Available Not Available No t Available Celestone Soluspan 6 mg/mL suspension for injection Take 1 mL by injection route. 2023 active Not Available Not Available Not Avai lable tramadol 50 mg tablet Take 1 tablet(s) every 6 hours by oral route as needed for 5 days. active Not Available Not Available No t Available omeprazole 20 mg capsule,delay ed release TAKE 1 CAPSULE BY MOUTH DAILY active Not Available Not Available No t Available diclofenac sodium 75 mg tablet,delaye d release TAKE 1 TABLET BY MOUTH TWICE DAILY active Not Available Not Available No t Available norethindrone (contraceptiv e) 0.35 mg tablet TAKE 1 TABLET BY MOUTH DAILY active Not Available Not Available No t Available fluoxetine 20 mg capsule TAKE 1 CAPSULE BY MOUTH DAILY active Not Available Not Available No t Available buspirone 15 mg tablet TAKE 1 TABLET BY MOUTH THREE TIMES DAILY NEEDED FOR ANXIETY active Not Available Not Available No t Available bupropion HCl SR 200 mg tablet,12 hr sustained-rel ease TAKE 1 TABLET BY MOUTH TWICE DAILY active Not Available Not Available No t Available diclofenac 1 % topical gel APPLY 2 GRAMS TO THE AFFECTED AREAS FOUR TIMES PER DAY active Not Available Not Available No t Available Vitals Date Recorded Body height Body mass index (BMI) Body weight Provider Name and Address Organization Details Last Updated DateTime 05/18/2024 160.02 cm 37.2 kg/m2 20903.4 g MAJOR LORENZO [facility] 05/18/2024 08:45:14 Date Recorded Body height Body mass index (BMI) Body weight Provider Name and Address Organization Details Last Updated DateTime 09/18/2023 160.02 cm 35.4 kg/m2 91079.47 g PHILIPPE GARZA [facility] 09/18/2023 14:56:32 Date Recorded Body height Body mass index (BMI) Body weight Provider Name and Address Organization Details Last Updated DateTime 10/30/2023 160.02 cm 32.8 kg/m2 74933.59 g MAJOR ESTEVEZERON [facility] 10/30/2023 15:18:12 Date Recorded Body height Body mass index (BMI) Body weight Provider Name and Address Organization Details Last Updated DateTime 12/23/2023 160.02 cm 32.8 kg/m2 16676.59 g AMMON BRANDENMIGUELANGEL [facility] 12/23/2023 14:49:42 Social History None recorded. Functional Status None recorded. Mental Status None recorded. Family History Nothing Reported. Medical History No medical history recorded. Gynecological HistoryNo gynecological history recorded. Obstetrics History GPAL:G 0 P 0 0 0 0 Past Encounters Encounter ID Performer Location Encounter Start Date Encounter Closed Date Diagnosis/Indication Diagnosis SNOMED-CT Code Diagnosis ICD10 Code Diagnosis Note [id number] Galen Medina [place] [address] 08/05/2023 08:33:16 08/26/2023 12:30:48 Pain of left wrist [id number] 04745 M25.532 Pain of left hand 084271 6407 27887 M79.642 Tenosynovi tis of wrist 903490168 M65.4 [id number] NIA Umanzor [address] [place] [address] 08/21/2023 14:52:40 09/14/2023 11:20:40 Tenosynovitis of left radial styloid 3909765615 9972616 M65.4 The patient is ambulatory , but has weakness and/or instabilit y of their extremity which requires stabilizat ion from this semi-rigid /rigid orthosis to improve their function. Verbal and written instructio ns for their use and applicatio n of this item were given. patient was instructed that should the brace result in increased pain, decreased sensation, increased swelling or an overall worsening of their medical condition, to please contact our office immediatel y. [id number] Khadar Hernandez PA-C [facility] [address] [place] [address] 09/18/2023 14:44:14 10/20/2023 10:32:01 Tenosynovitis of left radial styloid 1756591521 [id number] M65.4 [id number] [facility] [address] [address] [place] [address] 10/30/2023 15:10:10 11/27/2023 14:59:04 Tenosynovitis of left radial styloid 0571467977 [id number] M65.4 [id number] Estefania bill MD [facility] [address] [place] [address] 12/23/2023 14:34:02 01/12/2024 08:56:22 Tenosynovitis of left radial styloid [id number] M65.4 [id number] Mary Leigh, OTR/L,CHT [facility] [address] [place] [address] 04/18/2024 10:15:35 04/18/2024 10:48:06 Tenosynovitis of left radial styloid 5349456803 3293529 M65.4 This visit was completed today under the supervisio n of Dr. Arnoldo Potter n: Upon removal of the postop dressing, the incision is inspected. It is found to be clean and dry with an intact running suture with tails and Steri-Stri ps. Patient has intact neurovascu lar structures with only slight tenderness along the sides of the incision. No surroundin g erythema, wound drainage, warmth or signs of infection. There is typical slight palpable postoperat ashlee edema just surroundin g the incision. The patient states only slight radial forearm proximal muscle pain. Active range of motion is limited as expected however the patient is able to show midrange of wrist and thumb active range of motion and does have full motion of the digits with full sensation throughout the hand. Postoperative visit [id number] Z48.89 Impression : 14 days status post left first dorsal compartmen t release Plan: Surgical dressing is removed and the suture tails are clipped as well as the Steri-Stri ps are removed. Scar massage was instructed with a handout given to the patient today. Home exercises focusing on gentle wrist and thumb active range of motion were also reviewed. Patient brings her Velcro wrist and thumb immobiliza tion orthosis to provide support and stability to the radial wrist and thumb. This orthosis may be worn in the community or during certain activities or at night to help provide some stability to her thumb. Today dressing is simply a Large Band-Aid and a cotton stockinett e cover. The patient is given the following instructio ns:you may start to use the hand functional ly for light activities but to avoid any lifting or pinching at this time; do not to lift anything heavier than a coffee cup with the involved extremity; remain non weight bearing on the involved upper extremity; continue participat ing in active range of motion exercises without straining for the next 4 weeks. If any redness, swelling, drainage or do appear from the incision site, the patient was instructed to call us immediatel y. At the next appointmen t the patient will meet with the surgeon at 6 weeks postop. [id number] MD SANDY Suarez [address] [place] [address] 05/18/2024 08:14:34 06/03/2024 13:46:00 Tenosynovitis of left radial styloid [id number] M65.4 Health Concerns Section Related Observation LastModified by Organization Detai ls LastModified Time None Recorded Concern Status LastModified by Organization Details LastModified Time None Recorded Advance Directives Directive None Recorded Payers Insurance Date Sequence Insurance Name Policy Number Policy Choudhury Covered Member ID Choudhury Member ID Guarantor Name 06/03/2024 1 [facility] [employer] - TOGETHER (MEDICAID HMO) [id number] Brittney Martínez [id number] 1 Brittney Martínez OBGyn Episode No OBEpisode recorded.
[2024-11-14 13:39] VITALS: BP 120/74; PULSE 97; TEMP 37.5; O2SAT 98; BMI 35.0
--- NOTE | 2024-11-14 13:39 | AM.OFFWIN_ITS ---
Intake Vital Signs 11/14/24 13:39 Height 5 ft 3 in Weight 197 lb 6 oz BMI 35.0 BP 120/74 Blood Pressure Location Rt brachial Position Sitting Pulse 97 Pulse Source Pulse Oximeter Temp 99.5 F Temp Source Oral Pulse Oximetry (%) 98 Oxygen Delivery Method Room Air Intake Visit Reasons: EP LT lower back pain Patient Tobacco Use Status: Never used Tobacco Library Circulation Technician Required: No Is last menstrual period known: Yes Last menstrual period: 09/18/24 Post menopausal: No Patient : No Allergies venlafaxine (From Effexor) Adverse Reaction (Verified 11/14/24 13:45) suicidal Medication List - Last Reconciled 11/14/24 by Henny Pearl PA-C azelastine (Astepro Allergy) 2 sprays intranasal DAILY bupropion HCl SR 200 mg PO BID buspirone 15 mg PO TID cetirizine 10 mg PO DAILY PRN fluoxetine 40 mg PO DAILY fluoxetine 10 mg PO DAILY glycopyrrolate 1 mg PO ONCE PRN magnesium aspart,citrate,oxide mg PO multivitamin 1 tab PO DAILY norethindrone (contraceptive) 0.35 mg PO DAILY omeprazole magnesium (Prilosec OTC) 20 mg PO DAILY pseudoephedrine HCl 30 mg PO Q4-6H PRN triamcinolone acetonide (Nasacort) 1 spray intranasal DAILY Do you need a note to return to daycare/school/sports/work: Yes HPI HPI Comments History of Present Illness Details History - The patient is a 29-year-old female pr esenting with left lower back pain. - The pain began 4d ago at work, with no specific injury reported, but the patient has been bending over in her garden frequently. - The pain was severe by the evening, re quiring Tylenol and ibuprofen for relief, and worsened by the next morning, causing significant difficulty in getting out of bed. - The patient has been alternating betwe en heat and ice applications, with some relief noted from heat. - The patient took it easy over the week end, avoiding bending activities, but the pain persisted, affecting her ability to work as a [employer]. - No loss of bladder or bowel control wa s reported. Physical Exam General: Cooperative, healthy appearing, comfortable, no acute distress and well developed Orientation: Patient oriented x3 Limitations: Limited ability to bend over due to left lower back pain Head: Normal to inspection Ears: Hearing grossly normal bilaterally Nose: Normal External nose present Face and sinus: Normal facial exam Mouth: normal, moist oral mucosa Eyes: Appearance normal, both eyes and all related structures Neck: Normal visual inspection and Yes full ROM Respiratory: Normal respiratory effort and able to speak in complete sentences. Skin: no rashes or lesions noted Neuro: Patient oriented x3 Back/spine: No TTP cervical, thoracic or lumbar spine, palpable spasm on left lumber back, no other TTP noted Extremities: moving all extremities normally PFSH Medical History Obesity (BMI 35.0-39.9 without comorbidity) Environmental and seasonal allergies Depression with anxiety De Quervain's tenosynovitis, left Uses control Surgical History (Updated 07/28/24 @ 10:40 by Jaye Smith MD) Hx of LASIK H/O wisdom tooth extraction History of tonsillectomy and adenoidectomy H/O left wrist surgery Family History (Updated 07/28/24 @ 10:55 by Jaye Smith MD) Father Substance use disorder Mental health disorder Lung cancer Alcoholism Maternal Grandmother Lung cancer Paternal Grandmother Breast cancer Paternal Aunt Breast cancer, Onset Age: 40 Social History (Updated 07/28/24 @ 10:56 by Jaye Smith MD) Housing: House Patient Tobacco Use Status: Never used Tobacco e-Cigarette/Vaping Use: Currently Using Substance Use Type: Marijuana Patient : No service: No Current occupational status: employed Current occupation: [employer] Cognitive needs: No Hearing needs: No Vision needs: No Female Reproductive History Menstrual Date of last menstrual period: 09/18/24 Review of Systems Const All systems reviewed & are unremarkable except as noted in HPI and below Physical Exam Vital Signs: Last Vital Signs Temp 99.5 F 11/14/24 13:39 Pulse 97 11/14/24 13:39 BP 120/74 11/14/24 13:39 Pulse Ox 98 11/14/24 13:39 Oxygen Delivery Method Room Air 11/14/24 13:39 BMI result Body Mass Index 35.0 Assessment & Plan Assessment & Plan (1) Lumbar paraspinal muscle spasm: Code(s): M62.830 - Muscle spasm of back Plan: Plan Patient was informed and verbally consented to the use of an ambient scribe for clinic note documentation during this visit Left Lower Back Pain and muscle spasm - Prescribed a muscle relaxant, 5 mg tablet, with instructions to take one or two tablets every 8 hours as needed, avoiding driving or alcohol consumption due to potential drowsiness. - Recommended use of a lacrosse ball for self-massage against the wall to alleviate muscle spasm. - Prescribed meloxicam, a stronger NSAID, to be taken once daily with food for three days, then as needed. Do not use other NSAIDS while taking this medication. - Advised continued rest and emphasis on heat for muscle spasm relief. - Suggested follow-up if symptoms do not improve, with potential referral to physical therapy. Medications: New cyclobenzaprine 5 mg PO Q8H PRN 20 tabs 0RF Muscle Spasm meloxicam do not take other NSAIDS while taking this medication 15 mg PO DAILY PRN 15 tabs 0RF pain, moderate Coding Level of Care Code Est Pt Level 3 (07864) Diagnoses Lumbar paraspinal muscle spasm M62.830
== END 2024-11-14 14:19 | disposition home or self-care (01) ==
PROVIDERS: PCP Internal Medicine; Visit Provider Physician Assistant
DX: M62.830 Muscle spasm of back (principal)

== ENCOUNTER → 2024-11-14 12:40 | Outpatient (BNVA) | payer OTHER, SELFPAY | PROVIDERS: PCP Internal Medicine; Visit Provider Physician Assistant | DX: M62.830 Muscle spasm of back (principal) | CPT/HCPCS: 99212 ==

== ENCOUNTER 2025-01-05 08:21 | Outpatient (AMB) | payer OTHER, SELFPAY ==
[2025-01-05 08:23] VITALS: BP 130/82; PULSE 92; TEMP 37.1; O2SAT 98; BMI 34.4
--- NOTE | 2025-01-05 08:23 | AM.OFFWIN_ITS ---
Intake Vital Signs 01/05/25 08:23 Height 5 ft 3 in Weight 194 lb BMI 34.4 BP 130/82 Blood Pressure Location Lt brachial Position Sitting Pulse 92 Pulse Source Pulse Oximeter Temp 98.7 F Temp Source Oral Pulse Oximetry (%) 98 Intake Visit Reasons: EP-?yeast infection Patient Tobacco Use Status: Never used Tobacco Allergies venlafaxine (From Effexor) Adverse Reaction (Verified 01/05/25 08:27) suicidal HPI HPI Comments History of Present Illness Details History of Present Illness - The patient is a 29-year-old female pr esenting with vaginal itching. - She reports mild itchiness, redness, a nd irritation over the past week, without discharge, odor change, dysuria, or pain. - She denies recent antibiotic use, diet tyrell changes, new sexual partners, diabetes, or immunocompromising conditions. - The patient has experienced similar in fections previously and has used [id number] treatments like Vagisil, though she questions their effectiveness. - She denies fever, chills, abd pain, ba ck pain, hematuria, dysuria, or vaginal discharge. Physical Exam General: Cooperative, healthy appearing, comfortable, no acute distress and well developed Orientation: Patient oriented x3 Respiratory: Normal respiratory effort and able to speak in complete sentences. Clear to auscultation bilaterally Cardiovascular: Regular rate and rhythm. Normal S1 and S2 GI: Normal to inspection. Soft to palpation and nontender Skin: No rashes or lesions noted Patient was informed and verbally consented to the use of an ambient scribe for clinic note documentation during this visit. PFSH Medical History Obesity (BMI 35.0-39.9 without comorbidity) Environmental and seasonal allergies Depression with anxiety De Quervain's tenosynovitis, left Uses control Surgical History (Updated 07/28/24 @ 10:40 by Jaye Smith MD) Hx of LASIK H/O wisdom tooth extraction History of tonsillectomy and adenoidectomy H/O left wrist surgery Family History (Updated 07/28/24 @ 10:55 by Jaye Smith MD) Father Substance use disorder Mental health disorder Lung cancer Alcoholism Maternal Grandmother Lung cancer Paternal Grandmother Breast cancer Paternal Aunt Breast cancer, Onset Age: 40 Social History (Updated 07/28/24 @ 10:56 by Jaye Smith MD) Housing: House Patient Tobacco Use Status: Never used Tobacco e-Cigarette/Vaping Use: Currently Using Substance Use Type: Marijuana service: No Current occupational status: employed 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 Cognitive needs: No Hearing needs: No Vision needs: No Review of Systems Const All systems reviewed & are unremarkable except as noted in HPI and below Physical Exam Vital Signs: Last Vital Signs Temp 98.7 F 01/05/25 08:23 Pulse 92 01/05/25 08:23 BP 130/82 01/05/25 08:23 Pulse Ox 98 01/05/25 08:23 BMI result Body Mass Index 34.4 Assessment & Plan Assessment & Plan (1) Vaginal itching: Code(s): N89.8 - Other specified noninflammatory disorders of vagina Plan Most likely yeast vs BV plan - A vaginal swab will be performed to confirm the diagnosis, covering a panel for bacterial vaginosis, trichomoniasis, and yeast. - Empirical treatment with a single dose of fluconazole (Diflucan) will be initiated, with a second dose in three days if symptoms persist. - will call her with the results Orders: Orders Bacterial Vaginosis Panel Today N89.8 - Other specified noninflammatory disorders of vagina Medications: New fluconazole may repeat second dose 72 hrs after first dose if symptoms persist 150 mg PO Q3D 2 tabs 0RF Coding Level of Care Code Est Pt Level 3 (09847) Diagnoses Vaginal itching N89.8
--- OUTSIDE RECORDS SUMMARY | 2025-01-05 09:20 | XMS_ITS | Clinical Summary ---
Author Organization [facility] Address [address] [place] [address] Phone Care Team Providers Care Distribution Transformer Assembler Name Role Phone Chirag Rodrigez DO Primary Care Provider [phone] Allergies Active Allergy Reactions Criticality Noted Date [...] (one) time each day. 84 tablet 3 11/24/2024 11/25/19 26 Active Active Problems Problem Noted Date Diagnosed Date Marijuana abuse 04/08/2024 Gastroesophageal reflux disease without esophagi tis 04/02/2020 Seasonal allergic rhinitis 02/08/2019 Migraine headache 12/24/2016 Anxiety and depression 11/20/2016 Overview (04/08/2024): 02/19/16 [facility] ER visit . SI/Depression. Med provider was Viry Roe, Pediatric Encounters Date Type Department Care Team Description 11/28/2024 5:31 PM EDT - 11/28/2024 11:59 PM EDT Hospital Encounter Radiology Department - [address] [phone] Painful menstrual periods Discharge Disposition: Home or Self Care 11/24/2024 3:00 PM EDT Office Visit Obstetrics and Gynecology - [address] [phone] Yudy Currie, PA Painful menstrual periods (Primary Dx) 10/27/2024 Telephone Obstetrics & Gynecology - [address] [phone] Rosaura Martinez CNM from Last 3 Months Immunizations Name Administration Dates Next Due DTP 09/19/1997, 7,1996,05/13 DTaP (Infanrix) 6wks to less than 7yo 03/23/2001 [id number] (Pentacel) 2mo to less than 5yo 06/12/1997,1996,1996,05/13 [...] PROCEDURE: HISTORICAL TONSILLECTOMY OTHER SURGICAL HISTORY PROCEDURE: IA ADENOIDECTOMY PRIMARY <AGE 13 WISDOM TOOTH EXTRACTION [...] = 0.6 oz pur e alcohol) Comments No Sex and Gender Information Value Date Recorded Sex Assigned at Not on file Legal Sex Female 5:11 PM EST Gender Identity Not on file Sexual Orientation Not on file Obstetrics History Para Term AB IAB SAB Ectopic Multiple Livin g Live Births 0 0 0 0 0 0 0 0 Last Filed Vital Signs Vital Sign Reading Time Taken Comments Blood Pressure 138/110 11/24/2024 3:07 PM EDT Pulse 102 11/24/2024 3:07 PM EDT Temperature - - Respiratory Rate 14 11/24/2024 3:07 PM EDT Oxygen Saturation - - Inhaled Oxygen Concentration - - Weight 89.6 kg (197 lb 9.6 oz) 11/24/2024 3:07 P M EDT Height 160 cm (5' 3 ) 10/23/2022 2:37 PM EDT Body Mass Index 35 10/23/2022 2:37 PM EDT Plan of Treatment Health Maintenance Due Date Last Done Comments HIV Screening 03/29/2022 Hepatitis C Screening 03/29/2022 Social Influencers of Health Screening 03/29/2022 Cervical Cancer Screening: Pap Smear 05/07/2023 05/07/2020, 05/07/2020, 05/07/2020, Additional history exists Depression Screening 04/20/2024 COVID-19 Vaccine ( season) 2024 04/15/2022, 06/01/2021, 04/27/2020, Additional history exists Influenza Vaccine (#1) 2024 , 06/01/2021, 03/11/2019, Additional history exists Cholesterol Screening (Lipid Panel) 10/07/2027 10/06/2022 DTaP,Tdap,and Td Vaccines (9 - Td or Tdap) 06/01/2029 06/01/2019, 11/07/2014, 11/14/2008, Additional history exists RSV Immunization Adult Patients (1 - 1-dose 75+ series) 2071 Hepatitis B Vaccines Completed 1996, 1996, 1996 HIB Vaccines Completed 06/12/1997, 05/22, 1996, Additional history exists MMR Vaccines Completed [...] Procedure Name Priority Date/Time Associated Diagnosis Comments US DUPLEX ABDOMEN/PELVIS/RETRO LIMITED Routine 11/28/2024 6:23 PM EDT Painful menstrual periods US PELVIS NON OB COMPLETE W TRANSVAGINAL Routine 11/28/2024 6:23 PM EDT Painful menstrual periods LIPID PANEL Routine 10/06/2022 PAP SMEAR Routine 05/07/2020 from Last 3 Months or Most Recently Relevant to Health Maintenance Results * US Pelvis Non OB Complete w Transvaginal (11/28/2024 6:23 PM EDT) Anatomical Region Laterality Modality Body, Pelvis Ultrasound 11/29/2024 7:16 AM EDT Impressions 11/29/2024 7:19 AM EDT No uterine or ovarian abnormality identified. POS [id number] -------- FINAL REPORT -------- Dictated By: Joann Thompson Dictated Date: 11/29/2024 07:16 ET Assigned Physician: Joann Thompson Reviewed and Electronically Signed By: Joann Thompson Signed Date: 11/29/2024 07:19 ET Workstation ID: [id number] Transcribed By: Self Edit Transcribed Date: 11/29/2024 07:16 ET Narrative 11/29/2024 7:19 AM EDT PELVIC ULTRASOUND HISTORY: Pelvic pain. Painful menstrual periods. COMPARISON: None FINDINGS: Both transabdominal and endovaginal pelvic ultrasound were performed. Duplex Doppler scanning of the ovaries also performed. Uterus: 5.5 x 2.6 x 1.6 cm in size. No focal solid lesion. Endometrium: 0.4 cm in thickness which is within normal limits. No focal abnormality. Right ovary: Normal in size measuring 2.4 x 1.5 x 1.3 cm without abnormality. Normal arterial waveforms on spectral Doppler analysis, venous waveforms not visualized. Left ovary: Normal in size measuring 2.9 x 1.8 x 1.7 cm. It contains a 1.3 cm dominant follicle. Normal arterial waveforms on spectral Doppler analysis, venous waveforms not visualized. Cul-de-sac: No free fluid. Procedure Note Joann Thompson MD - 11/29/2024 PELVIC ULTRASOUND HISTORY: Pelvic pain. Painful menstrual periods. COMPARISON: None FINDINGS: Both transabdominal and endovaginal pelvic ultrasound were performed.Duplex Doppler scanning of the ovaries also performed. Uterus: 5.5 x 2.6 x 1.6 cm in size. No focal solid lesion. Endometrium: 0.4 cm in thickness which is within normal limits. No focalabnormality. Right ovary: Normal in size measuring 2.4 x 1.5 x 1.3 cm withoutabnormality. Normal arterial waveforms on spectral Doppler analysis,venous waveforms not visualized. Left ovary: Normal in size measuring 2.9 x 1.8 x 1.7 cm. It contains a 1.3cm dominant follicle. Normal arterial waveforms on spectral Doppleranalysis, venous waveforms not visualized. Cul-de-sac: No free fluid. IMPRESSION: No uterine or ovarian abnormality identified. POS [id number] -------- FINAL REPORT -------- Dictated By: Joann Thompson Dictated Date: 11/29/2024 07:16 ET Assigned Physician: Joann Thompson Reviewed and Electronically Signed By: Joann Thompson Signed Date: 11/29/2024 07:19 ET Workstation ID: [id number] Transcribed By: Self Edit Transcribed Date: 11/29/2024 07:16 ET us Yudy LEUNG IMG US PROCEDURES Final Resu lt * US Duplex Abdomen/Pelvis/Retro Limited (11/28/2024 6:23 PM EDT) Anatomical Region Laterality Modality Body Ultrasound 11/29/2024 7:16 AM EDT Impressions 11/29/2024 7:19 AM EDT No uterine or ovarian abnormality identified. POS [id number] -------- FINAL REPORT -------- Dictated By: Joann Thompson Dictated Date: 11/29/2024 07:16 ET Assigned Physician: Joann Thompson Reviewed and Electronically Signed By: Joann Thompson Signed Date: 11/29/2024 07:19 ET Workstation ID: [id number] Transcribed By: Self Edit Transcribed Date: 11/29/2024 07:16 ET Narrative 11/29/2024 7:19 AM EDT PELVIC ULTRASOUND HISTORY: Pelvic pain. Painful menstrual periods. COMPARISON: None FINDINGS: Both transabdominal and endovaginal pelvic ultrasound were performed. Duplex Doppler scanning of the ovaries also performed. Uterus: 5.5 x 2.6 x 1.6 cm in size. No focal solid lesion. Endometrium: 0.4 cm in thickness which is within normal limits. No focal abnormality. Right ovary: Normal in size measuring 2.4 x 1.5 x 1.3 cm without abnormality. Normal arterial waveforms on spectral Doppler analysis, venous waveforms not visualized. Left ovary: Normal in size measuring 2.9 x 1.8 x 1.7 cm. It contains a 1.3 cm dominant follicle. Normal arterial waveforms on spectral Doppler analysis, venous waveforms not visualized. Cul-de-sac: No free fluid. Procedure Note Joann Thompson MD - 11/29/2024 PELVIC ULTRASOUND HISTORY: Pelvic pain. Painful menstrual periods. COMPARISON: None FINDINGS: Both transabdominal and endovaginal pelvic ultrasound were performed.Duplex Doppler scanning of the ovaries also performed. Uterus: 5.5 x 2.6 x 1.6 cm in size. No focal solid lesion. Endometrium: 0.4 cm in thickness which is within normal limits. No focalabnormality. Right ovary: Normal in size measuring 2.4 x 1.5 x 1.3 cm withoutabnormality. Normal arterial waveforms on spectral Doppler analysis,venous waveforms not visualized. Left ovary: Normal in size measuring 2.9 x 1.8 x 1.7 cm. It contains a 1.3cm dominant follicle. Normal arterial waveforms on spectral Doppleranalysis, venous waveforms not visualized. Cul-de-sac: No free fluid. IMPRESSION: No uterine or ovarian abnormality identified. POS [id number] -------- FINAL REPORT -------- Dictated By: Joann Thompson Dictated Date: 11/29/2024 07:16 ET Assigned Physician: Joann Thompson Reviewed and Electronically Signed By: Joann Thompson Signed Date: 11/29/2024 07:19 ET Workstation ID: [id number] Transcribed By: Self Edit Transcribed Date: 11/29/2024 07:16 ET Yudy LEUNG IMG US PROCEDURES Final Resu lt * (ABNORMAL) Lipid panel (10/06/2022) LDL/HDL Ratio 4 0 - 4 Triglycerides 48 0 - 150 mg/dL Cholesterol 167 0 - 200 mg/dL HDL 44 >=40 mg/dL LDL Cholesterol 114(A) 0 - 100 mg/dL Blood Venous blood specimen / Unknown us Historical Provider LAB BLOOD ORDERABLES Sandy l Result * Pap smear (05/07/2020) 05/07/2020 Narrative HISTORICAL TESTING LAB RESULTING AGENCY - 05/09/2020 4:35 PM EST [id number] THINPREP PAP, IMAGED: NEGATIVE FOR SQUAMOUS INTRAEPITHELIAL LESION AND MALIGNANCY . CHRIS HESS(ASCP) (CASE ELECTRONICALLY SIGNED 05 09 2020) ADEQUACY: SATISFACTORY ENDOCERVICAL/TRANSFORMATION ZONE COMPONENT PRESENT. SOURCE: THINPREP PAP HPV IF ASCUS, CERVICAL, IMAGED CLINICAL INFORMATION: HPV IF DIAGNOSIS OF ASCUS. PAP HX NEG. Z12.4, Z01.419 Kaylin Grigsby CNM LAB CYTOLOGY ORDERABLES Final Result HISTORICAL TESTING LAB RESULTING AGENCY from Last 3 Months or Most Recently Relevant to Health Maintenance Insurance [facility] [employer] Care Teams Distribution Transformer Assembler Relationship Specialty Start Date End Date Chirag Rodrigez DO [address] [place] [phone] PCP - General Family Medicine 11/24/24
== END 2025-01-05 09:18 | disposition home or self-care (01) ==
PROVIDERS: PCP Internal Medicine; Visit Provider Physician Assistant Medical
DX: N89.8 Other specified noninflammatory disorders of vagina (principal)

== ENCOUNTER 2025-01-05 08:21 | Outpatient (REF) | payer OTHER, SELFPAY ==
[2025-01-05 15:15] LABS: Bacterial Vaginosis PCR NEGATIVE (Negative); Candida Group PCR DETECTED (Not Detect); Candida glab krusei PCR NOT DETECTED (Not Detect); Trichomonas vaginalis PCR NOT DETECTED (Not Detect)
== END 2025-01-05 08:22 | disposition home or self-care (01) ==
LOC: HO.LAB 08:21
PROVIDERS: Physician Assistant Medical; PCP Internal Medicine
DX: N89.8 Other specified noninflammatory disorders of vagina (principal); Z20.2 Contact with and (suspected) exposure to infections with a predominantly sexual mode of transmission
CPT/HCPCS: 81515; 99212